=== PATIENT | female | born 1995 | race Asian ===

== ENCOUNTER → 2023-09-02 09:25 | Outpatient (REF) | payer OTHER, SELFPAY | LOC: HWRAD 09:25 | PROVIDERS: ATTENDING PHYSICIAN Nurse Practitioner Adult Health | DX: N92.4 Excessive bleeding in the premenopausal period (principal) | CPT/HCPCS: 76830; 76856 ==

== ENCOUNTER 2024-05-01 23:59 | Emergency (ER) | payer OTHER, SELFPAY ==
[2024-05-02 00:11] VITALS: BP 114/84
--- NOTE | 2024-05-02 00:43 | ED.GENMED ---
History of Present Illness
General
Chief Complaint: Abdominal Pain
Source: patient and spouse
Time Seen by Provider: 05/02/24 00:24
History of Present Illness
History of Present Illness:
This patient is a 28-year-old female presents emergency department complaints of abdominal pain that started around noon on Friday described as across her lower abdomen and possibly consistent with her prior history of interstitial cystitis.
However, as the day progressed she noticed that the pain became more localized to the right lower quadrant associated with an episode of loose stool. She went to bed and woke up feeling 'better but not great'. Since waking up, she noticed
progressive increase in the intensity of right lower quadrant pain. The pain is worse after she eats or moves a certain way. By 11 PM the pain was much worse associated with vomiting nonbloody diarrhea. She denies sick contacts, fever, chest
pain, dyspnea, urinary symptoms, vaginal pain or discharge. She denies blood in her vomit or stool. She describes the pain as 'sharp and nonradiating. She denies associated back pain, upper abdominal pain pelvic pain.
Past History
Past History
ED Past Medical History: Other (POTS, IC)
ED Past Surgical History: Orthopedic
Social History
Tobacco: Vaping
Alcohol: None
Drug: None
Personal:
Living: with family
Phy Exam
Physical Exam
Physical Exam:
GENERAL: Alert , in no apparent distress
EYE: pupils equal and reactive
NECK: Supple, no significant adenopathy.
ENT: o/p clr, mmm.
CARDIAC: Regular rate and rhythm .
LUNGS: Clear breath sounds bilaterally, no acute respiratory distress, no wheezes/rales/rhonchi
ABDOMEN: Soft, moderate right lower quadrant tenderness, no r/g, no cvat
NEUROLOGICAL: Alert and oriented, no focal neuro deficits
SKIN: Warm and dry, skin intact.
MUSCULOSKELETAL: No edema, well perfused.
PSYCH: Normal and appropriate interaction.
Course
Orders/Labs/Results
Orders:
Orders
05/02/24 00:29
IV Insert/Care/Rem.- Treatment PRN
Test Result ONCE
05/02/24 00:39
Complete Blood Count/With Diff Urgent
Comprehensive Metabolic Panel Urgent
HCG, Serum Qualitative Screen Urgent
Comment: Notify provider if positive test present
Lipase Urgent
Urinalysis Reflex To Culture Urgent
Date Specimen was Collected: 05/02/24
Time Specimen was Collected: 00:31
05/02/24 00:43
CT Abd/Pel (IV only)-DH only Urgent
Comment:
Reason For Exam: rlq pain
Morphine Sulfate 2 mg .ROUTE .STK-MED ONE
Ondansetron Injectable [Zofran] 4 mg .ROUTE .STK-MED ONE
05/02/24 00:44
Ondansetron Injectable [Zofran] 4 mg IV NOW STA
05/02/24 00:45
Morphine Sulfate 2 mg IV NOW STA
Abnormal Lab Results
05/02/24
00:39
MCH 31.8 H pg
(27.0-31.0)
Abs Immat Gran (auto) 0.1 H 10^3/uL
(0-0.05)
Absolute Lymphs (auto) 3.6 H 10^3/uL
(1.2-3.4)
Absolute Monos (auto) 0.7 H 10^3/uL
(0.1-0.6)
AST 39 H U/L
(14-36)
ALT 53 H U/L
(0-35)
05/02/24 00:39
05/02/24 00:39
Vital Signs
Initial and Last Documented VS:
Initial Vital Signs
Temp Pulse Resp BP Pulse Ox
98.3 F 82 20 114/84 100
05/02/24 00:11 05/02/24 00:11 05/02/24 00:11 05/02/24 00:11 05/02/24 00:11
Last Documented Vital Signs
Temp Pulse Resp BP Pulse Ox
98.3 F 82 20 114/84 100
05/02/24 00:11 05/02/24 00:11 05/02/24 00:11 05/02/24 00:11 05/02/24 00:45
*Critical Care Note
Total Time (30-74mins, 75-104mins- exclusive of procedures): Not Applicable
Update Note
Update Note:
Patient presents to the Emergency Department with abdominal pain
Number and Complexity of Problems Addressed at the Encounter
� Chronic conditions affecting care:
� Acute Exacerbation and/or Progression of Chronic Illness:
� Differential Diagnosis includes: But not limited to appendicitis, mesenteric adenitis, colitis, kidney stone, Padmini cystitis, etc. etc.
Amount and/or Complexity of Data to be Reviewed and Analyzed
� I performed an independent evaluation of and my interpretation is:
EKG:
CT:Read by vision right corpus luteal cyst with small free fluid in the pelvis, slightly prominent fluid in the small bowel can be seen with enteritis or malabsorption but not specific, normal appendix no gallstones no bowel
obstructions or bowel wall thickening no obstructive urolithiasis.
Xrays:
Laboratory Studies:Generally unremarkable generally unremarkable
Other:
� Review of other/old records reveals:
� Clinical information was obtained by an independent historian:
� Prescriptions/Medications Considered but not given:
� Further testing considered but not performed:
Risk of Complications and/or Morbidity or Mortality of Patient Management
� Social determinants of health affecting care:
� Discussion with other providers (PCP, Hospitalists, Consultants, etc):
� Escalation of care including admission/observation vs risk of discharge considered: 115 am pt knitting, comfortable, feels 'much betteR'. labs, ct, etc noted. likley related to enteritis vs ovarian cyst. given reassuring exam
and w/u, recommendation for d/c with close f/u. D/w impor of f/y and reasons to rted.
ED Attending Note
-
Portions of this chart may have been created with voice recognition software.� Occasional wrong word or��sound alike� substitutions may have occurred due to the inherent limitations of voice recognition software.
Discharge Plan
Departure
Patient Disposition: Home (Routine Discharge)
Date of Disposition: 05/02/24
Time of Disposition: 01:16
Patient with high blood pressure during this ER visit?: Yes
Condition: Good
Discharge Problem:
Abdominal pain
Instructions: Ovarian Cyst (DC), Abdominal Pain, BLOOD PRESSURE
Prescriptions:
No Action
hydroxyzine HCl 10 mg Tablet
10 mg PO HS
Referrals:
NONE,* [Family Provider] -
Activity Restrictions/Additional Instructions:
PLEASE SEE YOUR DOCTOR IN 2 TO 3 DAYS FOR CLOSE FOLLOW-UP. IF YOU DEVELOP INCREASING NEW OR PERSISTENT PAIN, REPEATED VOMITING, FEVER, BLEEDING, CHEST PAIN, OR OTHER WORRISOME SIGNS, PLEASE RETURN TO THE ER IMMEDIATELY
Interventions
Interventions:
*Risk Screen - Suicide Last Done: 05/02/24 00:11
*Neglect/Abuse Screening Last Done: 05/02/24 00:11
DZ-Rrdtab-Rkuxxmjcaw Assessment Last Done: 05/02/24 00:37
Discharge Date and Time
Print Language: MONGOLIAN
[2024-05-02] MEDS: ZOFRAN 4 MG IV (00:45)
[2024-05-02] MEDS: MORPHINE SULFATE 2 MG IV (00:45)
[2024-05-02 00:48] LABS: Urine Albumin Negative (Neg - Trace); Urine Bilirubin Negative (Negative); Urine Character Clear (Clear); Urine Color Yellow; Urine Glucose Negative (Negative); Urine Ketone Negative (Negative); Urine Leukocyte Negative (Negative); Urine Nitrite Negative (Negative); Urine Occult Blood Negative (Negative); Urine Specific Gravity 1.015 (<1.030); Urine Urobilinogen Negative (Neg - 1+)
[2024-05-02 00:51] LABS: % Eosinophils 2.7 % (0-6); % Immature Granulocytes 0.5 % (0-0.5); % Lymphocytes 34.9 % (20.5-51.1); % Monocytes 7.2 % (1.7-9.3); % Neutrophils 53.7 % (42.2-75.2); Absolute Basophils 0.1 10^3/uL (0-0.2); Absolute Eosinophils 0.3 10^3/uL (0-0.7); Absolute Immature Granulocytes 0.1 10^3/uL (0-0.05); Absolute Lymphocytes 3.6 10^3/uL (1.2-3.4); Absolute Monocytes 0.7 10^3/uL (0.1-0.6); Absolute Neutrophils 5.5 10^3/uL (1.4-6.5); Hematocrit 41.2 % (37.0-47.0); Hemoglobin 14.8 g/dL (12.0-16.0); Mean Corp Hgb Conc. 35.9 g/dL (33.0-37.0); Mean Corpuscular Hgb 31.8 pg (27.0-31.0); Mean Corpuscular Volume 88.6 fL (81.0-99.0); Mean Platelet Volume 10.4 fL (7.4-10.4); Nucleated Red Blood Cells % 0 %; Platelet Count 369 10^3/uL (130-400); Red Blood Cell Count 4.65 10^6/uL (4.20-5.40); Red Cell Dist. Width 13.1 % (11.5-14.5); White Blood Cell Count 10.2 10^3/uL (4.8-10.8)
[2024-05-02 01:03] LABS: HCG, Serum Qualitative Screen Negative
[2024-05-02 01:13] LABS: ALT (SGPT) 53 U/L (0-35); AST (SGOT) 39 U/L (14-36); Albumin 4.6 g/dl (3.5-5.0); Alkaline Phosphatase 121 U/L (38-126); Blood Urea Nitrogen 8 mg/dl (7-17); Calcium 10.1 mg/dl (8.4-10.2); Carbon Dioxide 28 mmol/L (22-30); Chloride 104 mmol/L (98-107); Estimated Creatinine Clearance 100 ml/min; Glucose 83 mg/dl (70-99); Potassium 3.8 mmol/L (3.5-5.1); Sodium 144 mmol/L (135-145); Total Bilirubin 0.4 mg/dl (0.2-1.3); Total Protein 7.5 g/dl (6.3-8.2); eGFR > 60.00
[2024-05-02 01:28] VITALS: BP 112/72
[2024-05-02 01:36] LABS: Lipase 121 U/L (23-300)
== END 2024-05-02 01:31 | disposition home or self-care (01) ==
LOC: EMR 23:59
PROVIDERS: EMERGENCY PHYSICIAN Emergency Medicine
DX: R10.31 Right lower quadrant pain (principal); R11.10 Vomiting, unspecified; R19.7 Diarrhea, unspecified; N83.11 Corpus luteum cyst of right ovary; R03.0 Elevated blood-pressure reading, without diagnosis of hypertension; G90.A Postural orthostatic tachycardia syndrome [POTS]; F17.290 Nicotine dependence, other tobacco product, uncomplicated
CPT/HCPCS: 99284; 96374; 96375; 74177; 80053; 81003; 83690; 84703; 85025; Q9967